=== PATIENT | male | born 2000 | race Caucasian/White ===

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

== ENCOUNTER 2022-05-15 01:16 | Emergency (ER) | payer OTHER, SELFPAY ==
[2022-05-15 01:38] VITALS: BP 136/88; PULSE 77; RESP 16; O2SAT 97; BMI 21.4
[2022-05-15] MEDS: BUPIVACAINE 0.5% (PF) VIAL 30 ML INJ (03:30)
[2022-05-15] MEDS: BACITRACIN OINT 0.9 GM PCKT 1 APPLIC TOP (03:30)
[2022-05-15] MEDS: TET,DIPH,PERTUSS(ACELL),VAC/PF 0.5 ML SYRINGE IM (03:30)
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
== END 2022-05-15 04:02 | disposition home or self-care (01) ==
PROVIDERS: Emergency Provider Emergency Medicine; PCP Family Medicine
DX: S51.011A Laceration without foreign body of right elbow, initial encounter (principal); X58.XXXA Exposure to other specified factors, initial encounter; Z23 Encounter for immunization
CPT/HCPCS: 12002; 90471; 99283; 90715

== ENCOUNTER → 2023-05-08 17:18 | Outpatient (CLI) | payer OTHER, SELFPAY ==
--- NOTE | 2023-05-08 | DI.RAD.S_ITS ---
PROCEDURE: XR CERVICAL SPINE 4V OR 5V INDICATIONS: HEAD AND NECK PAIN TECHNIQUE: 5 views of the cervical spine acquired. COMPARISON: None. FINDINGS: Bones: No acute fractures or dislocations to the T1 level. Oblique images demonstrate no bony foraminal stenoses. Soft tissues: No prevertebral soft tissue swelling. IMPRESSION: No acute osseous abnormality. If the symptoms persist, consider cross sectional imaging such as MRI or CT for further assessment. Approved by: Kevin Daley M.D. on 05/09/2023 at 9:56
== END ==
PROVIDERS: PCP Family Medicine; Referring Provider Family Medicine; Visit Provider Family Medicine
DX: M54.2 Cervicalgia (principal)
CPT/HCPCS: 72050

== ENCOUNTER → 2023-05-09 10:45 | Outpatient (CLI) | payer OTHER, SELFPAY ==
--- NOTE | 2023-05-09 10:52 | DI.CT.S_ITS ---
PROCEDURE: CT HEAD/BRAIN WO CON INDICATIONS: Concussion without loss of consciousness, TECHNIQUE: Noncontrast 4.5 mm thick angled axial sections acquired from the foramen magnum to the vertex, with coronal and sagittal reformats. For radiation dose reduction, the following was used: automated exposure control, adjustment of mA and/or kV according to patient size. COMPARISON: None. FINDINGS: Image quality: Excellent. CSF spaces: Basal cisterns are patent. No extra-axial fluid collections. Ventricles are normal in size and shape. Brain: No midline shift. No intracranial masses or hemorrhage. Gates-white matter interface is normal. Skull and face: Calvarium and visualized facial bones are intact, without suspicious lesions. Sinuses: Visualized sinuses and mastoids are clear. IMPRESSION: 1. No CT evidence of acute intracranial trauma. 2. No significant soft tissue injury or underlying fracture. Dictated by: Vanessa Hanson M.D. on 05/09/2023 at 10:54 Approved by: Vanessa Hanson M.D. on 05/09/2023 at 10:56
== END ==
PROVIDERS: PCP Family Medicine; Referring Provider Family Medicine; Visit Provider Family Medicine
DX: S06.0X0A Concussion without loss of consciousness, initial encounter (principal); M54.2 Cervicalgia; V29.99XA Rider (driver) (passenger) of other motorcycle injured in unspecified traffic accident, initial encounter
CPT/HCPCS: 70450